=== PATIENT | female | born 1970 | race Caucasian/White ===

== ENCOUNTER 2022-04-07 15:10 | Outpatient (REF) | payer OTHER, SELFPAY ==
--- NOTE | 2022-04-07 14:45 | PAPFT_PTH ---
PATIENT: eTreza Quinn LOC: [facility] U#:[id number] AGE/SX: 51/F ROOM: RE04/07/[address]: Katelynn Perez NP : 1970 BED: DIS: 04/07/2022 SPEC #: [id number] RECD: 04/07/22 17:02 STATUS: TERESITA REIsabela #: [id number] LITTLE: 04/07/22 14:[address]: Katelynn Perez NP DEPT: [facility] Cytology RECD BY: Bessie Wilhelm Tissues: 1 - CX/ENDOCX FOR PAP SMEARS Procedures: PAP THIN PREP/[facility] Screening Comments: [id number]
== END 2022-04-07 15:11 | disposition home or self-care (01) ==
LOC: LBN 15:10
PROVIDERS: Visit Provider Nurse Practitioner Women's Health
DX: Z12.4 Encounter for screening for malignant neoplasm of cervix (principal)
CPT/HCPCS: 88142

== ENCOUNTER → 2022-05-15 00:53 | Outpatient (CLI) | payer OTHER, SELFPAY ==
--- NOTE | 2022-05-15 14:45 | DI.MAMMO_ITS ---
Exam(s) MAMMO SCREENING EXAM: MAMMO SCREENING CLINICAL HISTORY: screening TECHNIQUE: Bilateral full field digital CC and MLO mammographic images were obtained with 3D tomosyn thesis and utilizing computer aided detection (CAD). COMPARISON: Available for comparison. FINDINGS: Masses/Architectural Distortion: None seen. Microcalcifications: No suspicious pleomorphic-type are seen. Skin Thickening/Nipple Retraction: None. IMPRESSION: 1. No significant interval change with no specific features of malignancy noted. 2. Unless there is more urgent need, screening mammography is recommended, as per [employer] guidelines. BI-RADS Category 1 - Negative Breast Density - Category C - Heterogeneously dense Breast density category C or D implies that the patient has dense breast tissue. Dense breast tissue is very common and is not abnormal but dense breast tissue can make it harder to find cancer on a ma mmogram. Also, dense breast tissue may increase their breast cancer risk. This information about the result of the mammogram report was provided to the patient to raise their awareness. Use this report when you speak with the patient about their risks for breast cancer, which includes their family hist ory. At that time, you may recommend for more screening tests (Ultrasound or MRI) as they might be us eful based on their risk. A negative radiographic report should not delay biopsy if a dominant or clinically suspicious mass is present. Up to ten percent of cancers are not identified on mammography. A negative report may reinforce clinical impression. Adenosis and dense breasts may obscure an underlying neoplasm. False positive reports average 6 to 10%. Patient will receive a letter notifying them of these results.
== END ==
PROVIDERS: Visit Provider Nurse Practitioner Women's Health
DX: Z12.31 Encounter for screening mammogram for malignant neoplasm of breast (principal); R92.8 Other abnormal and inconclusive findings on diagnostic imaging of breast
CPT/HCPCS: 77063; 77067

== ENCOUNTER 2023-11-26 18:42 | Outpatient (REF) | payer OTHER, SELFPAY | END 2023-11-26 18:43 | disposition home or self-care (01) | LOC: LBN 18:42 | PROVIDERS: Visit Provider Family Medicine | DX: R10.2 Pelvic and perineal pain (principal) | CPT/HCPCS: 87480; 87510; 87660 ==

== ENCOUNTER 2024-01-06 09:22 | Outpatient (REF) | payer OTHER, SELFPAY ==
[2024-01-07 15:18] LABS: Chlamydia Result Negative (Negative); GC Result Negative (Negative)
== END 2024-01-06 09:23 | disposition home or self-care (01) ==
LOC: LBN 09:22
PROVIDERS: Visit Provider Advanced Practice Midwife
DX: Z11.3 Encounter for screening for infections with a predominantly sexual mode of transmission (principal); B37.9 Candidiasis, unspecified; B96.89 Other specified bacterial agents as the cause of diseases classified elsewhere
CPT/HCPCS: 87491; 87591; 87480; 87510; 87660

== ENCOUNTER 2024-02-08 09:58 | Outpatient (REF) | payer OTHER, SELFPAY | END 2024-02-08 09:59 | LOC: LBN 09:58 | PROVIDERS: Visit Provider Nurse Practitioner Women's Health | DX: N76.0 Acute vaginitis (principal) | CPT/HCPCS: 87480; 87510; 87660 ==

== ENCOUNTER 2024-03-10 10:47 | Day surgery (SDC) | payer OTHER, SELFPAY ==
--- NOTE | 2024-03-09 16:59 | COLE_ITS ---
Date of service: 03/10/24 Time of Service: 12:52 Colonoscopy Report Date of procedure: 03/10/24 Pre-op diagnosis general: crc acreening/hx of torteous colon Post-op diagnosis procedure note: same Surgeon: Yen Booth Anesthesia Type: General:No Airway Estimated blood loss (mL): 1 Pathology: other Complications: None Disposition: same day Prep: Miralax/Dulcolax Retraction Time: 13 Procedure Description: After informed consent was obtained, explaining risks of the procedure, including but not limits to: bleeding, infections, complications of anesthesia, perforations (which may require antibiotics and /or surgery and stay in the hospital), and abdominal pain/cramping. The patient was taken to the procedure room and placed in a left decubitous position. Monitors were applied and a time out was done. The patients name, date of , procedure, allergies to medications and metal in their body was reviewed. The patient was then sedated. Once sedated and comfortable a rectal exam was done. External exam was normal. Internal exam revealed a normal sphincter tone and no palpable masses. The previously lubricated Olympus scope was then introduced (see RN notes for scope number) and retrofelexed. No internal hemorrhoids were identified. The scope was then advanced to the cecum without difficulty. The TI and appendiceal orifice were identified. The scope was then slowly retracted over 13 minutes back into the rectum. Polyps: none. Diverticula: none. The mucosa is pink and healthy w/ a normal vascular pattern. The scope was removed, and the patient was woken up and taken back to Same day surgery in stable condition. The patient tolerated the procedure well and there were no immediate complications. Follow up: The patient should follow up in 10 years, unless they develop changes in bowel habits or other new gastrointestinal complaints. [place] Bowel Prep [place] Bowel Prep Right Colon: 3 Left Colon: 3 Transverse Colon: 3 Total Score: 9
--- NOTE | 2024-03-09 16:59 | PDOC.DSDIS_ITS ---
Date of service: 03/10/24 Time of Service: 13:11 Discharge Plan Disposition Patient Disposition: Home Condition: Good Discharge Details Reason For Visit: Colon scope Attending Provider: Yen Booth Primary Care Provider: None,None Home Meds and New Rx's Prescriptions: Continued Probiotic 3 billion cell capsule 3,000 mmu cells PO DAILY Rx Instructions: administer with a meal Mirena 20 mcg/24 hours (7 yrs) 52 mg intrauterine device 1 device intrauterine ONCE Rx Instructions: as a single dose Discontinued bisacodyl [Dulcolax (bisacodyl)] 5 mg tablet,delayed release (DR/EC) 5 mg PO ONCE Qty: 4 0RF Rx Instructions: Take per colonoscopy instructions provided by ordering providers office polyethylene glycol 3350 17 gram/dose powder 17 g PO ONCE Qty: 238 0RF Rx Instructions: Take per colonoscopy instructions provided by ordering providers office Discharge Instructions Additional Instructions: DSU Colonoscopy Post- Op Instructions Instructions for Everyone who is given Anesthesia: For your safety, please do the following for the next twenty-four (24) hours: *Do Not operate a motor vehicle (car, truck, motorcycle, etc.) *Do Not drink alcoholic beverages or use any recreational drugs for the first 24 hours or while taking pain medications. The medications in your body may have a reaction that can be dangerous. *Do Not make any important decisions or sign any important papers. Findings: Normal colon Follow up: Repeat colonoscopy in 10 years time 1. No lifting over 20 pounds or strenuous activity for the first 24 hours after your procedure. After 24 hours there are no restrictions on your activity but you may feel fatigued for a few days. 2. After you arrive home you may have a light meal and return to your normal diet as you can tolerate it without feeling sick to your stomach. 3. You may have a bloated, gaseous feeling in your belly (abdomen) after a colonoscopy. Passing gas and belching will help. Walking or lying down on your left side with your knees flexed may relieve the discomfort. Call the office at [phone] (Office) or [phone] (Hospital) right away if you notice any of the following: a.Vomiting of blood or ?coffee ground stools?. b.Rectal bleeding 1Tbsp, blood clots or continuous bleeding. c.Severe belly (abdominal) pain. d.A hard distended belly (abdomen) and an inability to pass gas. 4. Please don?t expect to have a normal BM (bowel movement) for 2-3 days after your procedure. 5. If there are questions regarding the findings of your procedure, please contact your doctor 6. If you are unable to contact your doctor with a problem, contact the hospital at [phone]. 7. Continue all your regular medications unless directed otherwise. I understand the above instructions and have no questions. Signature of Patient or Adult Escort Name of Responsible Adult Escort Signature of Nurse Date/Time Stand Alone Forms: Anesthesia Discharge Inst., Stephon Smith (DSU) Activity:: see above Diet:: see above Discharge Orders Discharge Orders: Discharge Order (Routine); Ordered 03/10/24 Ordered By: Yen Booth DS: Diagnosis Discharge Diagnosis (1) Perimenopause: Status: Acute (2) Brain tumor (benign): Status: Acute (3) Screening for malignant neoplasm of colon performed: Status: Acute Asessment and Plan: The patient is seen and examined after their colonoscopy.? The patient has been able to pass gas.? They are not having abdominal pain.? They have been able to tolerate liquids and a snack.? They do not have any nausea or vomiting.? They are not having any chest pain or shortness of breath.??? They are not having any rectal bleeding. Their vital signs have been stable-see nursing notes. We discussed findings during their colonoscopy, and any biopsies that were done/polyps that were removed. The patient will be sent a letter with any biopsy results, and when to repeat the colonoscopy.-see discharge instructions. Patient was given explicit instructions to follow-up regarding colonoscopy-refer to discharge instructions.? We reviewed resumption of medications. Patient verbalized understanding and discharged in stable and satisfactory condition- See nursing notes.
[2024-03-10 10:50] VITALS: BP 133/95; PULSE 67; RESP 16; TEMP 36.4; O2SAT 100
[2024-03-10] MEDS: Lactated Ringers 1,000 ML 80 ML IV (11:15)
--- NOTE | 2024-03-10 11:22 | W.ANESPRE ---
General Info Date of Service Date Performed: 03/10/24 Height: 5 ft 11 in Weight: 65.9 kg Body Mass Index (BMI): 20.2 Surgical Procedure: Operation Date: 03/10/24 11:20 Proposed Procedure Side Surgeon jimi Booth, DO Meds Allergies and Home Medications Allergies Allergy/AdvReac Type Severity Reaction Status Date / Time sulfamethoxazole (From Allergy Intermediate Hives Verified 03/10/24 11:05 Bactrim) trimethoprim (From Bactrim) Allergy Intermediate Hives Verified 03/10/24 11:05 Sulfa (Sulfonamide Allergy Hives Verified 03/10/24 11:05 Antibiotics) Home Medication ?Medication ?Instructions ?Recorded levonorgestrel 21 mcg/24 hr (up to 1 device intrauterine ONCE 04/07/22 8 years) 52 mg intrauterine device (Mirena) lactobacillus combination no.4 3 3,000 mmu cells PO DAILY 02/02/24 billion cell capsule (Probiotic) Current Visit Medications: Current Medications Generic Name Dose Route Start Last Admin Trade Name Freq PRN Reason Stop Dose Admin Hyoscyamine Sulfate 0.125 mg 03/10/24 04:32 Hyoscyamine 0.125 Mg Sl/Oral/Chew SL 04/09/24 04:31 DIRECTED PRN Ringer's Solution 1,000 mls @ 80 mls/hr 03/10/24 06:00 IV 04/08/24 23:59 INFUSION PAYAL IV Miscellaneous Supplies 1 each 03/10/24 06:00 Iv Access IV 04/08/24 23:59 DIRECTED PAYAL Naloxone HCl 0 mg 03/10/24 11:21 Naloxone 0.4 Mg/Ml Vial IVP 04/09/24 11:20 PRN PRN Ondansetron HCl 4 mg 03/10/24 04:32 Ondansetron 4 Mg/2 Ml Vial IVP 04/09/24 04:31 Q4H PRN PRN Nausea / Vomiting Ondansetron HCl 4 mg 03/10/24 11:21 Ondansetron 4 Mg/2 Ml Vial IVP 03/10/24 11:22 .X 1 DOSE STA Sodium Chloride 0 ml 03/10/24 06:00 Normal Saline Flush 10 Ml Syr IV 04/08/24 23:59 PRN PRN Sodium Chloride 0 ml 03/10/24 06:00 Normal Saline 10 Ml Vial IJ 04/08/24 23:59 DIRECTED PRN Sterile Water 0 ml 03/10/24 06:00 Water,Injection,Sterile 10 Ml Vial IJ 04/08/24 23:59 DIRECTED PRN PFSH Active Problems Active Problems: Problem Status Onset Code Screening for malignant neoplasm of colon performed Acute Z12.11 Perimenopause Acute N95.1 Encounter for screening examination for sexually transmitted disease Acute Z11.3 Vaginitis Acute N76.0 IUD surveillance Acute 05/13/22 Z30.431 Brain tumor (benign) Acute D33.2 Medical History Medical History Comments:: PONV with D&C Surgical History Surgical History Hx of colonoscopy Hx of dilation and curettage Tobacco Smoking/Tobacco Use Status: Former Tobacco Use Passive smoking exposure: No Second hand exposure: No Alcohol Alcohol Intake: current Alcohol intake frequency: a few times a week Alcohol type: wine Substance Use Substance use: Never Substance use type: does not use Prental History History 4 Para 2 Hx # Term Pregnancies Multiple births Hx # Pregnancies Ectopic pregnancies AB induced Hx Number of Living Children AB spontaneous 2 Vital Signs and Lab Results Vital Signs Most Recent Vital Signs in EMR: Most Recent Vital Signs Temp Pulse Resp BP Pulse Ox 36.4 C L 67 16 133/95 H 100 03/10/24 10:50 03/10/24 10:50 03/10/24 10:50 03/10/24 10:50 03/10/24 10:50 Point of Care Results Point of Care Results: POC- Test(urine) Negative 03/10/24 11:07 Lab Results Blood Type / Crossmatch: No Data to Display Complete Blood Count: No Data to Display Complete Metabolic Panel: No Data to Display Liver Function Panel: No Data to Display Coagulation Panel: No Data to Display Cardiac Panel: No Data to Display Arterial Blood Gas: No Data to Display Venous Blood Gas: No Data to Display Pancreas Panel: No Data to Display Thyroid Panel: No Data to Display Infectious Disease: No Data to Display Blood Cultures: No Data to Display Toxicology Panel: No Data to Display Panel: No Data to Display Anesthesia Assessment and Plan Anesthesia History Personal History: PONV Family History: No Family History of Anesthesia Complications Exercise Tolerance Exercise Tolerance: Metabolic Equivalents>4 Pertinent Negatives Pertinent Negatives: No Symptoms of GERD, No Major Cardiovascular Symptoms or Complaints and No Major Pulmonary Symptoms or Complaints Cardiac & Pulmonary Exam Cardiac Exam: Normal S1/S2 Heart Sounds Pulmonary Exam: Clear Bilateral Breath Sounds Implantable Cardiac Device Does patient have a Pacemaker or an ICD?: No Airway Exam Known Difficult Airway: No Mallampati Class: 1 Mouth Opening: Normal (> 3cm) Thyromental Distance: Greater than 3 cm Neck Range of Motion: Full ROM Neck Circumference: Normal Teeth Condition: Normal Dentition ASA Classification ASA Score: ASA 2 Emergency Case?: No NPO Status NPO Status: NPO Clears >2 hours, Solids >8 hours Status Status: Negative HCG Anesthesia Plan Resuscitation Status: Full Code Anesthesia Technique: General Anesthesia Airway Planned: Natural Airway Monitors Used: Standard Monitors
[2024-03-10 11:23] VITALS: BMI 20.2
[2024-03-10] MEDS: Ondansetron 4 MG/2 ML VIAL IVP (11:27)
--- NOTE | 2024-03-10 11:34 | NUR.NOTE ---
Nursing Note: IV odansetron administered at 1127. Pt immediately reports itchy skin on wrist with a few areas of hives. Institutional Commodity Analyst RN Lino Martinez RN in room at time this RN administered medication. Lino Martinez RN then reported to Rohit Dash CRNA. informed when she came into room. Rohit Dash CRNA assessed area. No further sreading of hives beyond wrist at this time. Rohit Dash CRNA informed this RN he will administer IV benadryl intraop.
--- NOTE | 2024-03-10 12:19 | BOWEL_PTH ---
PATIENT: Tereza Quinn LOC: [facility] U#:[id number] AGE/SX: 53/F ROOM: RE03/10/[address]: Yen Booth : 1970 BED: DIS: 03/10/2024 SPEC #: [id number] RECD: 03/10/24 13:16 STATUS: TERESITA REQ #: [id number] LITTLE: 03/10/24 12:[address]: Yen Booth DEPT: Surgical Specimen RECD BY: Bessie Wilhelm ENTERED: 03/10/24 13:17 SP TYPE: Bowel OTHR DR: None Tissues: 1 - BIOPSY BOWEL 2 - BIOPSY BOWEL Procedures: GROSS AND MICRO LEVEL 4 Comments: [id number]
[2024-03-10 12:42] VITALS: BP 109/78; PULSE 69; RESP 16; TEMP 36.3; O2SAT 100
[2024-03-10 13:20] VITALS: BP 125/73; PULSE 56; RESP 16; TEMP 36; O2SAT 100
--- NOTE | 2024-03-10 13:26 | W.ANESPOSTOP ---
Postoperative Evaluation Date, Time and Location Date Performed: 03/10/24 Time Performed: 13:26 Patient Location: Day Surgery Unit Vital Signs Most Recent Imported Vital Signs: Most Recent Vital Signs Temp Pulse Resp BP Pulse Ox 36 C L 56 L 16 125/73 100 03/10/24 13:20 03/10/24 13:20 03/10/24 13:20 03/10/24 13:20 03/10/24 13:20 Pain Score Most Recent Pain Score: Most Recent Pain Score Pain Level 0 03/10/24 13:20 Assessment Mental Status: Awake (Alert & Oriented to Patient Baseline) Airway and Respiratory Function: Patent airway with normal (patient baseline) respiratory exam Cardiovascular Function: Hemodynamically Stable Hydration Status: Adequately Hydrated Nausea & Vomiting: No Nausea or Vomiting Pain: Pt. Denies Any Pain Peripheral Nerve Block: Patient did not receive a nerve block
== END 2024-03-10 13:50 | disposition home or self-care (01) ==
LOC: SUR 10:47
PROVIDERS: Visit Provider Surgery
PROC: 0DJD8ZZ Inspection of Lower Intestinal Tract, Via Natural or Artificial Opening Endoscopic (ICD-10-PCS; CPT 45378; principal; 2024-03-10 11:15)
DX: N95.1 Menopausal and female climacteric states (principal); D33.2 Benign neoplasm of brain, unspecified; Z12.11 Encounter for screening for malignant neoplasm of colon; D12.0 Benign neoplasm of cecum
CPT/HCPCS: 45380; 81025; 88305; J1100; J1200; J2001; J2405; J2704

== ENCOUNTER 2024-03-16 14:10 | Outpatient (REF) | payer OTHER, SELFPAY | END 2024-03-16 14:11 | disposition home or self-care (01) | LOC: LBN 14:10 | PROVIDERS: Visit Provider Obstetrics & Gynecology | DX: N76.0 Acute vaginitis (principal) | CPT/HCPCS: 87480; 87510; 87660 ==

== ENCOUNTER 2024-06-28 09:24 | Outpatient (REF) | payer OTHER, SELFPAY | END 2024-06-28 09:25 | disposition home or self-care (01) | LOC: LBN 09:24 | PROVIDERS: Visit Provider Nurse Practitioner Women's Health | DX: N76.0 Acute vaginitis (principal) | CPT/HCPCS: 87480; 87510; 87660 ==

== ENCOUNTER 2024-09-25 12:00 | Outpatient (REF) | payer OTHER, SELFPAY | END 2024-09-25 12:01 | disposition home or self-care (01) | LOC: LBN 12:00 | PROVIDERS: Visit Provider Nurse Practitioner Women's Health | DX: N76.0 Acute vaginitis (principal) | CPT/HCPCS: 87480; 87510; 87660 ==

== ENCOUNTER 2024-12-26 11:10 | Outpatient (REF) | payer OTHER, SELFPAY ==
--- NOTE | 2024-12-26 11:00 | PAPFT_PTH ---
PATIENT: Tereza Quinn LOC: [facility] U#:[id number] AGE/SX: 54/F ROOM: RE12/26/[address]: Katelynn Perez NP : 1970 BED: DIS: 12/26/2024 SPEC #: [id number] RECD: 12/26/24 13:07 STATUS: TERESITA REIsabela #: [id number] LITTLE: 12/26/24 11:[address]: Chris RODRIGUEZ,Katelynn DEPT: [facility] Cytology RECD BY: Bessie Wilhelm ENTERED: 12/26/24 13:07 SP TYPE: PAPFT OT DR: Unknown,Unknown Tissues: 1 - CX/ENDOCX FOR PAP SMEARS Procedures: PAP THIN PREP/[facility] Screening HPV DNA PROBE Comments: [id number] (HPV 16 & 18/45)
== END 2024-12-26 11:11 | disposition home or self-care (01) ==
LOC: LBN 11:10
PROVIDERS: Visit Provider Nurse Practitioner Women's Health
DX: Z12.4 Encounter for screening for malignant neoplasm of cervix (principal); R87.618 Other abnormal cytological findings on specimens from cervix uteri
CPT/HCPCS: 88142; 87624

== ENCOUNTER 2025-01-11 13:51 | Outpatient (REF) | payer OTHER, SELFPAY | END 2025-01-11 13:52 | disposition home or self-care (01) | LOC: LBN 13:51 | PROVIDERS: Visit Provider Obstetrics & Gynecology | DX: N94.9 Unspecified condition associated with female genital organs and menstrual cycle (principal); R30.0 Dysuria | CPT/HCPCS: 87077; 87086; 87186; 87480; 87510; 87660 ==

== ENCOUNTER 2025-01-15 02:01 | Outpatient (CLI) | payer OTHER, SELFPAY ==
--- NOTE | 2025-01-15 16:00 | DI.MAMMO_ITS ---
Exam(s) MAMMO SCREENING EXAM: MAMMO SCREENING CLINICAL HISTORY: screening. TECHNIQUE: Bilateral full field digital CC and MLO mammographic images were obtained with 3D tomosyn thesis and utilizing computer aided detection (CAD). COMPARISON: Prior mammograms were reviewed. FINDINGS: There has been no significant change in the appearance and distribution of the fibroglandular tissue. There are no new spiculated masses nor malignant appearing microcalcification groups. There is no significant architectural distortion nor skin thickening-retraction. IMPRESSION: No radiographic evidence of malignancy. BI-RADS Category 1 - Negative Breast Density - Category C - The breast are heterogeneously dense, which may obscure small masses. Breast density Category C or D implies that the patient has dense breast tissue. Dense breast tissue can make it harder to find cancer on a mammogram. Dense breast tissue is also associated with an incr eased risk of breast cancer. This information about the result of the mammogram report was provided to the patient to raise their awareness. Use this report when you speak with the patient about their risks for breast cancer, which includes their family history. At that time, you may recommend additional screening tests (Ultrasoun d or MRI) as these tests may add significant information. A negative radiographic report should not delay biopsy if a dominant or clinically suspicious mass is present. Up to ten percent of cancers are not identified on mammography. A negative report may reinforce clinical impression. Adenosis and dense breasts may obscure an underlying neoplasm. False positive reports average 6 to 10%. Patient will receive a letter notifying them of these results.
== END 2025-01-15 02:21 ==
LOC: DI 02:01
PROVIDERS: Visit Provider Nurse Practitioner Women's Health
DX: Z12.31 Encounter for screening mammogram for malignant neoplasm of breast (principal)
CPT/HCPCS: 77063; 77067

== ENCOUNTER 2025-03-21 14:08 | Outpatient (REF) | payer OTHER, SELFPAY | END 2025-03-21 14:09 | disposition home or self-care (01) | LOC: LBN 14:08 | PROVIDERS: Visit Provider Obstetrics & Gynecology | DX: R30.0 Dysuria (principal); N76.0 Acute vaginitis | CPT/HCPCS: 87086; 87480; 87510; 87660 ==

== ENCOUNTER 2025-04-20 15:55 | Outpatient (REF) | payer OTHER, SELFPAY | END 2025-04-20 15:56 | disposition home or self-care (01) | LOC: LBN 15:55 | PROVIDERS: Visit Provider Obstetrics & Gynecology | DX: R30.0 Dysuria (principal) | CPT/HCPCS: 87077; 87086 ==